=== PATIENT | female | born 1970 | race Caucasian/White ===

== ENCOUNTER 2024-11-03 15:08 | Emergency (ER) | payer MEDICAID ==
[~2024-11-03] VITALS: Ht 160 cm; Wt 70.5 kg
[2024-11-03 15:14] VITALS: BP 138/86; PULSE 70; RESP 16; TEMP 98.4; O2SAT 97
[2024-11-03] MEDS: LIDOCAINE 5% TRANSDERMAL PATCH TD ONE (18:23)
[2024-11-03] MEDS: methocarbamoL 500 MG TABLET PO ONE (18:23)
[2024-11-03] MEDS: ACETAMINOPHEN 500 MG TABLET PO ONE (18:24)
[2024-11-03] MEDS: IBUPROFEN 400 MG TABLET PO ONE (18:24)
[2024-11-03] MEDS ORDERED: METH-812 PO (20:17)
== END 2024-11-03 20:29 | disposition home or self-care (01) ==
LOC: EDBD 15:08 → EMS 15:08
DX: M54.9 Dorsalgia, unspecified (principal); V89.2XXA Person injured in unspecified motor-vehicle accident, traffic, initial encounter; Y93.89 Activity, other specified; Y92.89 Other specified places as the place of occurrence of the external cause; Y99.8 Other external cause status
CPT/HCPCS: 99284; Z7502; Z7610